=== PATIENT | male | born 1995 | race Caucasian/White ===

== ENCOUNTER 2020-11-27 21:37 | Emergency (ER) | payer MEDICARE, MEDICAID, SELFPAY ==
--- NOTE | ~2020-11-27 | XR_ITS ---
EXAMINATION: XR FACIAL BONES CLINICAL INFORMATION: Swelling and pain of the right orbit. COMPARISON: None TECHNIQUE: 3 views of the facial bones were obtained. FINDINGS: There is no fracture identified. The orbital rims are intact. The paranasal sinuses appear well-aerated. The mandible appears intact. XR/XR facial bones min 3V IMPRESSION: No fracture seen. The paranasal sinuses appear aerated.
[2020-11-27 21:46] VITALS: BP 147/73; PULSE 114; RESP 18; TEMP 36.6; O2SAT 99; BMI 25.9
[2020-11-28] VITALS: BP 123/79; PULSE 94; RESP 16; O2SAT 100
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
== END 2020-11-28 01:54 | disposition home or self-care (01) ==
PROVIDERS: Emergency Provider Student in an Organized Health Care Education/Training Program
DX: S00.11XA Contusion of right eyelid and periocular area, initial encounter (principal); Y04.2XXA Assault by strike against or bumped into by another person, initial encounter; Y93.9 Activity, unspecified; Y92.049 Unspecified place in boarding-house as the place of occurrence of the external cause; Y99.9 Unspecified external cause status
CPT/HCPCS: 70150; 99283; 99284

== ENCOUNTER 2021-05-27 17:07 | Emergency (ER) | payer MEDICARE, MEDICAID, SELFPAY ==
[2021-05-27 17:25] VITALS: BP 121/79; PULSE 125; RESP 16; TEMP 37; O2SAT 98; BMI 19.9
[2021-05-27 20:00] VITALS: BP 116/79; PULSE 89; RESP 16; TEMP 36.6; O2SAT 97
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
== END 2021-05-27 20:48 | disposition home or self-care (01) ==
PROVIDERS: Emergency Provider Emergency Medicine
DX: Z04.3 Encounter for examination and observation following other accident (principal)
CPT/HCPCS: 99282; 99284